=== PATIENT | female | born 1985 | race Caucasian/White ===

== ENCOUNTER 2017-01-19 13:21 | Emergency (ER) | payer MEDICAID, OTHER ==
[~2017-01-19] VITALS: Ht 152.4 cm; Wt 58.0 kg
[2017-01-19 13:39] VITALS: Ht 152.4 cm; Wt 58.0 kg
[2017-01-19 16:40] LABS: ADD SCAN DIFF NO
[2017-01-19 16:42] LABS: BASOPHILS % 0.3 % (0.0-2.0); EOSINOPHILS # 0.1 10^3/ul (0.0-0.5); EOSINOPHILS % 0.9 % (0.0-7.0); HEMATOCRIT 32.7 % (37.0-47.0); HEMOGLOBIN 10.8 g/dl (12.0-16.0); LYMPHOCYTES # 1.8 10^3/ul (0.8-2.9); LYMPHOCYTES % 28.3 % (15.0-51.0); MEAN CORPUSCULAR HEMOGLOBIN 29.3 pg (29.0-33.0); MEAN CORPUSCULAR VOLUME 88.9 fl (82.0-101.0); MEAN PLATELET VOLUME 9.4 fl (7.4-10.4); MONOCYTE # 0.6 10^3/ul (0.3-0.9); MONOCYTES % 8.6 % (0.0-11.0); NEUTROPHIL # 3.9 10^3/ul (1.6-7.5); NEUTROPHILS % 61.4 % (39.0-77.0); PLATELET COUNT 338 10^3/UL (140-415); RED BLOOD COUNT 3.68 10^6/ul (4.20-5.40); RED CELL DISTRIBUTION WIDTH 13.5 % (11.5-14.5); WHITE BLOOD COUNT 6.4 10^3/ul (4.8-10.8)
--- NOTE | 2017-01-19 16:43 | RADRPT ---
PROCEDURE: XR Chest. CLINICAL INDICATION: Transient ischemic attack. TECHNIQUE: PA and Lateral views of the chest were obtained. COMPARISON: None. FINDINGS: The soft tissues are normal. The bony elements are normal. The heart, cardiomediastinal silhouette and hilar structures are normal. The pulmonary vasculature is normal. There is a left-sided aorta. The lungs are clear. The costophrenic angles are normal. IMPRESSION: 1. Normal chest x-ray. RPTAT:AAJJ Physician Reese Date Time Electronically viewed and signed by Jj Malik Physician on 01/19/2017 16:43 ANIKET/
[2017-01-19 16:53] LABS: ALBUMIN 4.7 g/dl (3.3-4.9); INR 0.9; PROTIME 12.1 Sec (12.2-14.2); PT RATIO 0.9
[2017-01-19 16:54] LABS: CHLORIDE 102 mmol/L (97-110); PARTIAL THROMBOPLASTIN TIME 26.1 Sec (25.0-35.0); POTASSIUM 3.8 mmol/L (3.5-5.1); SODIUM 141 mmol/L (135-144)
[2017-01-19 16:56] LABS: ALBUMIN/GLOBULIN RATIO 1.42; ANION GAP 17 (8-16); BILIRUBIN,INDIRECT 0.2 mg/dl (0-1.1); BILIRUBIN,TOTAL 0.2 mg/dl (0.2-1.3); CARBON DIOXIDE 26 mmol/L (21-31); CHOLESTEROL 185 mg/dl (100-200); CREATININE 0.68 mg/dl (0.44-1.00)
[2017-01-19 16:57] LABS: ALANINE AMINOTRANSFERASE 38 IU/L (13-69); ALKALINE PHOSPHATASE 67 IU/L (42-121); ASPARTATE AMINO TRANSFERASE 33 IU/L (15-46); BLOOD UREA NITROGEN 11 mg/dl (7-20); CALCIUM 9.7 mg/dl (8.4-10.2); CHOL/HDL RATIO 2.1 RATIO; CREATINE KINASE 73 IU/L (23-200); GLUCOSE 97 mg/dl (70-220); HDL CHOLESTEROL 87 mg/dl (34-82); TRIGLYCERIDES 104 mg/dl (0-149)
[2017-01-19 17:06] LABS: CK-MB 0.53 ng/ml (0.0-2.4)
--- NOTE | 2017-01-19 17:09 | ERA ---
ER Documentation Chief Complaint Date/Time DATE: 01/19/17 TIME: 16:57 Chief Complaint LEFT FACIAL NUMBNESS,SEVERE HEADACHE X 3 DAYS HPI Patient is a 31-year-old female with multiple complaints. Patient states that she has had altered sensation in the left side of her face. Patient says that it is painful and diffuse across the left side and does not cross over to the right side. Patient is not taking any medications at this moment to improve the symptoms. Patient has not had symptoms like this before. Patient has a positive history of TIA 7 years ago. Patient has a significant cardio vascular family history. Patient's boyfriend also states that the left side of her face is drooping a little bit more than the right. Patient states that the etiology of the TIA was never discovered and denies any clotting disorders. Patient states that earlier today about 7 hours ago weakness developed on the left side. 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 Patient also complains of swelling of the left eyelid. Patient states that there was a pimple there about 1 week ago. Pimple was popped before the swelling began. Patient says that the swelling is increased. Has done nothing to relieve the symptoms. Patient denies any dysuria, hematuria, discharge of the vagina, changes in vision, headache, changes in gait, tinnitus, dizziness, vertigo, nausea, constipation, diarrhea, vomiting, dysgeusia, dysarthria, dysphasia or history of sexually transmitted disease. ROS All systems reviewed and are negative except as per history of present illness. Medications Home Meds Active Scripts Sulfamethoxazole/Trimethoprim (Bactrim 400-80 mg Tablet) 1 Each Tablet, 1 EACH PO BID for 10 Days, TAB Prov:JAMES GRIGSBY PA-C 01/19/17 Cephalexin* (Keflex*) 500 Mg Capsule, 500 MG PO QID for 5 Days, CAP Prov:JAMES GRIGSBY PA-C 01/19/17 Allergies Allergies: Uncoded Allergies: PENICILLIN (Allergy, Intermediate, 01/19/17) PMhx/Soc Medical and Surgical Hx: pt denies Surgical Hx Hx Alcohol Use: No Hx Substance Use: No Physical Exam Vitals Vital Signs Date Time Temp Pulse Resp B/P Pulse Ox O2 Delivery O2 Flow Rate FiO2 01/19/17 16:11 Nasal Cannula 2 01/19/17 13:39 98.3 67 18 116/76 98 Physical Exam Const: Patient is a well but disturbed 31-year-old female presenting with her boyfriend and is in no acute distress. Head: Atraumatic Eyes: Normal Conjunctiva. No nystagmus, pupils are PERRLA, extraocular movements are intact bilaterally. ENT: Normal External Ears, Nose and Mouth. Neck: Full range of motion..~ No meningismus. Resp: Clear to auscultation bilaterally Cardio: Regular rate and rhythm, no murmurs Abd: Soft, non tender, non distended. Normal bowel sounds Skin: No petechiae or rashes Back: No midline or flank tenderness Ext: No cyanosis, or edema Neur: Awake and alert. Gait is within normal limits. No dysdiadochokinesia with arm switching. Heel to ozuna test, finger-nose test were negative. Patient 's speech seems to be grossly unimpaired. Altered sensation on the left side of the face complaining of pain in all 3 trigeminal areas with rubbing of the finger but normal on the right side at all through trigeminal areas. Psych: Normal Mood and Affect Result Diagram: 01/19/17 1615 01/19/17 1615 Results 24 hrs Laboratory Tests Test 01/19/17 16:15 White Blood Count 6.410^3/ul Red Blood Count 3.6810^6/ul Hemoglobin 10.8g/dl Hematocrit 32.7% Mean Corpuscular Volume 88.9fl Mean Corpuscular Hemoglobin 29.3pg Mean Corpuscular Hemoglobin Concent 33.0g/dl Red Cell Distribution Width 13.5% Platelet Count 59432^3/UL Mean Platelet Volume 9.4fl Neutrophils % 61.4% Lymphocytes % 28.3% Monocytes % 8.6% Eosinophils % 0.9% Basophils % 0.3% Nucleated Red Blood Cells % 0.0/100WBC Neutrophils # 3.910^3/ul Lymphocytes # 1.810^3/ul Monocytes # 0.610^3/ul Eosinophils # 0.110^3/ul Basophils # 0.010^3/ul Nucleated Red Blood Cells # 0.010^3/ul Prothrombin Time 12.1Sec Prothrombin Time Ratio 0.9 INR International Normalized Ratio 0.90 Activated Partial Thromboplast Time 26.1Sec Sodium Level 141mmol/L Potassium Level 3.8mmol/L Chloride Level 102mmol/L Carbon Dioxide Level 26mmol/L Anion Gap 17 Blood Urea Nitrogen 11mg/dl Creatinine 0.68mg/dl Glucose Level 97mg/dl Calcium Level 9.7mg/dl Total Bilirubin 0.2mg/dl Direct Bilirubin 0.00mg/dl Indirect Bilirubin 0.2mg/dl Aspartate Amino Transf (AST/SGOT) 33IU/L Alanine Aminotransferase (ALT/SGPT) 38IU/L Alkaline Phosphatase 67IU/L Creatine Kinase 73IU/L Creatine Kinase Index 0.7 Creatinine Kinase MB (Mass) 0.53ng/ml Troponin I < 0.012ng/ml Total Protein 8.0g/dl Albumin 4.7g/dl Globulin 3.30g/dl Albumin/Globulin Ratio 1.42 Triglycerides Level 104mg/dl Cholesterol Level 185mg/dl LDL Cholesterol, Calculated 77mg/dl HDL Cholesterol 87mg/dl Cholesterol/HDL Ratio 2.1RATIO Procedures/MDM Patient is 31-year-old female complaining of weakness and altered unilateral sensation. Patient on physical examination had decreased scrap shear operator equal bilaterally. I question the patient's efforts and reliability. Patient was with her boyfriend who I also question the reliability of. Patient has swelling of the upper left eyelid and a scab for more a pimple was popped roughly 1 week ago. Most likely diagnosis of the eyelid swelling is preorbital cellulitis. Patient altered sensation of the left face stating that my finger running across her on the left but not right in all 3 areas of the trigeminal nerve. Patient's history and physical exam was negative for vertigo, vision changes, ataxia, wide-based gait, nystagmus, intention tremor, slurred speech, heel to ozuna, or dysdiadochokinesia. Most likely diagnosis at this time is preorbital cellulitis and trigeminal neuralgia. Although since there is a personal history of a TIA 7 years ago we will go ahead and treat symptoms as a possible stroke. I talked to my attending Dr. Andersen and he agrees with my current assessment and plan. We will go ahead and workup for stroke. CT showed no intracranial pathology. All the lab results were within normal limits. We will go ahead and discharge with return precautions. We will treat cellulitis with Keflex and trigeminal neuralgia with prednisone. Patient denies ever having an MRI. Have spoke to my attending and he agrees with my assessment and plan. Have advised the patient to take prednisone prescribed by urgent care as directed. We will no longer prescribe mild prednisone at risk for double dosing. Departure Diagnosis: Primary Impression: Trigeminal neuralgia of left side of face Additional Impression: Cellulitis of eyelid Qualified Code: H00.036 - Cellulitis of eyelid, left Ruled Out: Stroke, TIA (transient ischemic attack) Condition: Stable Additional Instructions: Follow up with your PCP within the next 1-3 days for a more thorough evaluation and a possible referral to a specialist. Return the the emergency department immediately if symptoms worsen or change. If you have any questions regarding medications, ask your pharmacist or us before you leave. If any adverse reactions occur while taking your medications, discontinue the treatment and return to the emergency department immediately. Take your medications as directed, and complete the entire course of treatment. JAMES GRIGSBY PA-C Jan 19, 2017 17:07
[2017-01-19 17:16] LABS: TROPONIN-I < 0.012 ng/ml (0.00-0.12)
--- NOTE | 2017-01-19 17:47 | RADRPT ---
PROCEDURE: CT brain without contrast CLINICAL INDICATION: Code stroke, TIA/neurologic deficit, left-sided facial numbness TECHNIQUE: CT of the brain without contrast was performed on a multidetector CT scanner, with multi planar reformats. One or more of the following dose reduction techniques were used: Automated expos ure control, adjustment in mA and / or kV according to patient size, use of iterative reconstructive technique. CTDIvol = 45 mGy; DLP = 630 mGy-cm. COMPARISON: None available FINDINGS: No acute intracranial hemorrhage is identified. No extra-axial fluid collection is seen. There is no mass effect. No midline shift is identified. Ventricles and sulci are within normal limits for size and configuration. The density of the brain is within normal limits. Huddleston-white differentiation is preserved. Osseous structures are unremarkable. Mastoid air cells and imaged paranasal sinuses grossly clear. IMPRESSION: No acute intracranial pathology identified. Results called to Dr. Andersen at 05:45 p.m., 01/19/2017. RPTAT: VV .Gabriel Brito MD, Date Time Electronically viewed and signed by .Gabriel Brito MD, on 01/19/2017 17:47 .O/
[2017-01-19] MEDS ORDERED: SULF1TAB30 PO (18:30)
[2017-01-19] MEDS ORDERED: CEPH-443 PO (18:30)
[2017-01-19 18:46] VITALS: BP 106/59; PULSE 80; RESP 18; TEMP 98.6
== END 2017-01-19 18:47 | disposition home or self-care (01) ==
LOC: FTE 13:21
DX: G50.0 Trigeminal neuralgia (principal); H00.036 Abscess of eyelid left eye, unspecified eyelid; R53.1 Weakness
CPT/HCPCS: 70450; 71010; 80053; 80061; 82550; 82553; 83036; 84484; 85025; 85610; 85730; 93005; Z7502